=== PATIENT | male | born 1980 | race African-American/Black ===

== ENCOUNTER 2022-11-12 12:42 | Inpatient (IN) | payer MEDICAID ==
[2022-11-12] VITALS (30 sets, daily range): BP systolic 93–130; BP diastolic 60–87; PULSE 84–117; RESP 2–23; TEMP 98.2–98.6
[~2022-11-12] VITALS: Ht 170.2 cm; Wt 114.8 kg
[2022-11-12] MEDS ORDERED: SUCCINYLCHOLINE CHLORIDE 200MG/10ML IV ONE (13:00)
[2022-11-12] MEDS ORDERED: SODIUM CHLORIDE 0.9% 1,000 ML IV ONE (13:00)
[2022-11-12] MEDS ORDERED: ETOMIDATE 2MG/ML 10ML VIAL IV ONE (13:00)
[2022-11-12] MEDS ORDERED: FENTANYL CITRATE/PF 50MCG/ML 2ML VIAL IV ONE (13:00)
[2022-11-12] MEDS ORDERED: PROPOFOL 10MG/ML 100ML 100 ML IV ONE (13:00)
[2022-11-12] MEDS ORDERED: MIDAZOLAM HCL 100 MG in DEXT 5% WATER 80 ML IV ONE (13:00)
[2022-11-12 13:18] LABS: BASOPHILS % 0.7 % (0.0-2.0); EOSINOPHILS % 1.7 % (0.0-5.0); HEMATOCRIT. 48.8 % (42.0-52.0); HEMOGLOBIN. 16.8 g/dL (14.0-18.0); LYMPHOCYTES % 40.3 % (20.0-50.0); MEAN CORPUSCULAR HEMOGLOBIN 31.7 pg (28.0-32.0); MEAN CORPUSCULAR VOLUME 92.3 fL (80.0-94.0); MEAN PLATELET VOLUME 7.9 fl (7.4-10.4); MONOCYTES % 8.9 % (2.0-8.0); NEUTROPHILS % 48.4 % (40.0-76.0); PLATELET 262 x1000/uL (130-400); RED BLOOD CELL COUNT 5.29 mill/uL (4.7-6.1); RED CELL DISTRIBUTION WIDTH 12.4 % (11.6-14.6)
[2022-11-12 13:25] LABS: CHLORIDE 101 mEq/L (98-107)
[2022-11-12] MEDS ORDERED: MIDAZOLAM HCL 100 MG in SODIUM CHLORIDE 0.9% 80 ML IV ONE (13:30)
[2022-11-12 13:31] LABS: CLARITY URINE CLOUDY (CLEAR); COLOR URINE YELLOW (YELLOW); KETONES URINE NEGATIVE (NEGATIVE); LEUKOCYTE ESTERASE URINE NEGATIVE (NEGATIVE); NITRITE URINE NEGATIVE (NEGATIVE); OCCULT BLOOD URINE 2+ (NEGATIVE); PROTEIN URINE 4+ (NEGATIVE); SPECIFIC GRAVITY URINE 1.022 (1.005-1.030); UROBILINOGEN URINE 0.2 E.U./dL (0.2-1.0)
[2022-11-12 13:34] LABS: ETHANOL BLOOD < 10 mg/dL (-10)
[2022-11-12 13:56] LABS: *AMPHETAMINES SCREEN URINE PRESUMTIVE POSITIVE (NEGATIVE); *BARBITURATES SCREEN URINE NEGATIVE (NEGATIVE); *BENZODIAZEPINES SCREEN URINE NEGATIVE (NEGATIVE); *COCAINE SCREEN URINE NEGATIVE (NEGATIVE); CANNABINOID URINE SCREEN NEGATIVE (NEGATIVE); METHADONE URINE SCREEN NEGATIVE (NEGATIVE); OPIATES URINE SCREEN NEGATIVE (NEGATIVE); PHENCYCLIDINE URINE SCREEN NEGATIVE (NEGATIVE)
[2022-11-12 14:46] LABS: BG CARBOXYHEMOGLOBIN 0.5 % (0.5-1.5); BG DEOXYHEMOGLOBIN 1.2 % (0.0-5.0); BG FRACTION INSPIRED OXYGEN 100; BG METHEMOGLOBIN 0.4 % (0.0-1.5); BG OXYGEN SATURATION 98.8 % (92.0-98.5); BG OXYHEMOGLOBIN 97.9 % (94.0-97.0); BG PCO2 63.5 mmHg (35.0-45.0); BG PH 7.246 (7.350-7.450); BG PO2 194.6 mmHg (75.0-100.0); BG SAMPLE SITE RIGHT RADIAL; BG TOTAL HEMOGLOBIN 16.1 g/dL (12.0-18.0); BG VENT MODE VENT - AC
[2022-11-12] MEDS ORDERED: DEXTROSE 50% WATER 50ML SYRINGE IV PRN (15:00)
[2022-11-12] MEDS ORDERED: ACETAMINOPHEN 650MG SUPP PR PRN ×2 (15:00)
[2022-11-12] MEDS ORDERED: LORAZEPAM 2MG/ML CPJ IV PRN (15:00)
[2022-11-12 15:47] LABS: T4 FREE 0.95 ng/dL (0.76-1.46)
[2022-11-12 15:59] LABS: PHOSPHORUS 7.5 mg/dL (2.5-4.9)
[2022-11-12] MEDS ORDERED: PROPOFOL 10MG/ML 100ML 100 ML IV PRN (16:15)
[2022-11-12] MEDS ORDERED: MIDAZOLAM HCL 100 MG in SODIUM CHLORIDE 0.9% 80 ML IV PRN (16:15)
[2022-11-12] MEDS: BLOOD SUGAR DIAGNOSTIC STRIP TEST SCH ×2 (16:30→21:20)
[2022-11-12] MEDS: PROPOFOL 10MG/ML 100ML 100 ML IV PRN ×3 (16:32→22:05)
[2022-11-12] MEDS: INSULIN LISPRO 100 UNITS/ML SUBCUT SCH ×2 (17:00→21:00)
[2022-11-12] MEDS ORDERED: FOLIC ACID 1 MG, THIAMINE HCL 100 MG, MVI, ADULT NO.1 10 ML in DEXTROSE 5% WATER 1,000 ML IV ONE ×4 (17:30)
[2022-11-12] MEDS: AZITHROMYCIN 500 MG in DEXT 5% WATER 250 ML IV SCH (18:52)
[2022-11-12] MEDS: ENOXAPARIN 40MG/0.4ML SYR SUBCUT SCH (21:21)
[2022-11-12] MEDS ORDERED: IPRATROPIUM/ALBUTEROL 0.5-3(2.5)MG/3ML NEB HHN PRN (23:00)
[2022-11-13] VITALS (55 sets, daily range): BP systolic 102–150; BP diastolic 66–118; PULSE 84–107; RESP 15–23; TEMP 98.2–101.1
[2022-11-13] MEDS: DEXT 5%/0.9% NACL 1,000 ML IV SCH ×3 (02:32→22:23)
[2022-11-13] MEDS: PROPOFOL 10MG/ML 100ML 100 ML IV PRN ×7 (02:41→22:23)
[2022-11-13 05:24] LABS: CHLORIDE 106 mEq/L (98-107)
[2022-11-13 05:32] LABS: BASOPHILS % 0.3 % (0.0-2.0); EOSINOPHILS % 1.6 % (0.0-5.0); HEMATOCRIT. 42.1 % (42.0-52.0); HEMOGLOBIN. 14.5 g/dL (14.0-18.0); LYMPHOCYTES % 18.7 % (20.0-50.0); MEAN CORPUSCULAR HEMOGLOBIN 31.6 pg (28.0-32.0); MEAN CORPUSCULAR VOLUME 91.9 fL (80.0-94.0); MEAN PLATELET VOLUME 8.2 fl (7.4-10.4); MONOCYTES % 8.4 % (2.0-8.0); PLATELET 126 x1000/uL (130-400); RED BLOOD CELL COUNT 4.58 mill/uL (4.7-6.1); RED CELL DISTRIBUTION WIDTH 12.6 % (11.6-14.6)
[2022-11-13 05:35] LABS: CREATINE KINASE MB FRACTION 10.6 ng/mL (0.5-3.6); PHOSPHORUS 3.6 mg/dL (2.5-4.9)
[2022-11-13] MEDS: INSULIN LISPRO 100 UNITS/ML SUBCUT SCH ×4 (06:16→20:36)
[2022-11-13] MEDS: BLOOD SUGAR DIAGNOSTIC STRIP TEST SCH ×4 (06:16→20:36)
[2022-11-13] MEDS: ENOXAPARIN 40MG/0.4ML SYR SUBCUT SCH ×2 (08:50→20:35)
[2022-11-13] MEDS: IPRATROPIUM/ALBUTEROL 0.5-3(2.5)MG/3ML NEB HHN SCH ×3 (08:57→21:09)
[2022-11-13 09:03] LABS: BG CARBOXYHEMOGLOBIN 0.8 % (0.5-1.5); BG DEOXYHEMOGLOBIN 1.3 % (0.0-5.0); BG FRACTION INSPIRED OXYGEN 70; BG HCO3 ACT 23.9 mmol/L (22.0-26.0); BG METHEMOGLOBIN 0.2 % (0.0-1.5); BG OXYGEN SATURATION 98.7 % (92.0-98.5); BG OXYHEMOGLOBIN 97.7 % (94.0-97.0); BG PCO2 44.5 mmHg (35.0-45.0); BG PH 7.347 (7.350-7.450); BG PO2 145.2 mmHg (75.0-100.0); BG SAMPLE SITE RIGHT RADIAL; BG TOTAL HEMOGLOBIN 14.6 g/dL (12.0-18.0); BG VENT MODE VENT - AC
[2022-11-13] MEDS: AZITHROMYCIN 500 MG in DEXT 5% WATER 250 ML IV SCH (17:29)
[2022-11-14] VITALS (60 sets, daily range): BP systolic 112–157; BP diastolic 50–111; PULSE 73–101; RESP 13–30; TEMP 97.9–100.4
[2022-11-14] MEDS: PROPOFOL 10MG/ML 100ML 100 ML IV PRN ×7 (00:51→14:56)
[2022-11-14] MEDS: IPRATROPIUM/ALBUTEROL 0.5-3(2.5)MG/3ML NEB HHN SCH ×5 (00:57→23:58)
[2022-11-14 05:21] LABS: BASOPHILS % 0.6 % (0.0-2.0); EOSINOPHILS % 3.6 % (0.0-5.0); HEMATOCRIT. 39.8 % (42.0-52.0); HEMOGLOBIN. 13.7 g/dL (14.0-18.0); LYMPHOCYTES % 29.3 % (20.0-50.0); MEAN CORPUSCULAR HEMOGLOBIN 31.4 pg (28.0-32.0); MEAN CORPUSCULAR VOLUME 91.4 fL (80.0-94.0); MEAN PLATELET VOLUME 8.1 fl (7.4-10.4); MONOCYTES % 9.4 % (2.0-8.0); NEUTROPHILS % 57.1 % (40.0-76.0); PLATELET 152 x1000/uL (130-400); RED BLOOD CELL COUNT 4.36 mill/uL (4.7-6.1); RED CELL DISTRIBUTION WIDTH 12.6 % (11.6-14.6)
[2022-11-14] MEDS: BLOOD SUGAR DIAGNOSTIC STRIP TEST SCH ×4 (05:37→20:27)
[2022-11-14] MEDS: INSULIN LISPRO 100 UNITS/ML SUBCUT SCH ×4 (05:37→20:55)
[2022-11-14 05:53] LABS: CHLORIDE 109 mEq/L (98-107)
[2022-11-14 07:53] LABS: BG BASE EXCESS 0.7 mmol/L (-2.0-2.0); BG CARBOXYHEMOGLOBIN 0.6 % (0.5-1.5); BG FRACTION INSPIRED OXYGEN 45; BG HCO3 ACT 26.7 mmol/L (22.0-26.0); BG METHEMOGLOBIN 0.2 % (0.0-1.5); BG OXYHEMOGLOBIN 96.2 % (94.0-97.0); BG PCO2 48.2 mmHg (35.0-45.0); BG PH 7.362 (7.350-7.450); BG PO2 92.1 mmHg (75.0-100.0); BG SAMPLE SITE RIGHT RADIAL; BG TOTAL HEMOGLOBIN 14.3 g/dL (12.0-18.0); BG TOTAL RESPIRATORY RATE 22 b/min; BG VENT MODE VENT - AC
[2022-11-14] MEDS: PANTOPRAZOLE SODIUM 40 MG/VIAL IV SCH (08:03)
[2022-11-14] MEDS: DEXT 5%/0.9% NACL 1,000 ML IV SCH ×2 (08:03→17:32)
[2022-11-14] MEDS: ENOXAPARIN 40MG/0.4ML SYR SUBCUT SCH (08:04)
[2022-11-14] MEDS ORDERED: KCL 10MEQ/50ML PREMIX 50 ML IV NR (11:00)
[2022-11-14] MEDS: DEXMEDETOMIDINE 400 MCG/100 ML 100 ML IV PRN ×3 (13:42→20:55)
[2022-11-14] MEDS: CHLORDIAZEPOXIDE 5 MG CAPSULE PO SCH ×2 (14:00→20:57)
[2022-11-14] MEDS: AZITHROMYCIN 500 MG in DEXT 5% WATER 250 ML IV SCH (17:37)
[2022-11-14] MEDS: LORAZEPAM 2MG/ML CPJ IV PRN (18:13)
[2022-11-14] MEDS ORDERED: PROPOFOL 10MG/ML 100ML 100 ML IV PRN (19:45)
[2022-11-14] MEDS ORDERED: FENTANYL CITRATE/PF 2,500 MCG in SODIUM CHLORIDE 0.9% 200 ML IV PRN (20:15)
[2022-11-14] MEDS: MIDAZOLAM HCL 100 MG in SODIUM CHLORIDE 0.9% 80 ML IV PRN (20:55)
[2022-11-14] MEDS: ENOXAPARIN 30MG/0.3ML SYR SUBCUT SCH (20:57)
[2022-11-15] VITALS (54 sets, daily range): BP systolic 118–166; BP diastolic 58–124; PULSE 71–85; RESP 5–41; TEMP 98.6–99.8
[2022-11-15] MEDS: DEXMEDETOMIDINE 400 MCG/100 ML 100 ML IV PRN ×5 (00:17→17:01)
[2022-11-15] MEDS: DEXT 5%/0.9% NACL 1,000 ML IV SCH ×2 (04:30→15:11)
[2022-11-15 05:22] LABS: CHLORIDE 110 mEq/L (98-107)
[2022-11-15 05:25] LABS: BASOPHILS % 0.8 % (0.0-2.0); EOSINOPHILS % 3.1 % (0.0-5.0); HEMATOCRIT. 38.2 % (42.0-52.0); HEMOGLOBIN. 13.4 g/dL (14.0-18.0); LYMPHOCYTES % 21.2 % (20.0-50.0); MEAN CORPUSCULAR HEMOGLOBIN 32.2 pg (28.0-32.0); MEAN CORPUSCULAR VOLUME 91.4 fL (80.0-94.0); MEAN PLATELET VOLUME 8.2 fl (7.4-10.4); MONOCYTES % 10.8 % (2.0-8.0); NEUTROPHILS % 64.1 % (40.0-76.0); PLATELET 150 x1000/uL (130-400); RED BLOOD CELL COUNT 4.18 mill/uL (4.7-6.1); RED CELL DISTRIBUTION WIDTH 12.4 % (11.6-14.6)
[2022-11-15] MEDS: INSULIN LISPRO 100 UNITS/ML SUBCUT SCH ×4 (05:53→20:45)
[2022-11-15] MEDS: BLOOD SUGAR DIAGNOSTIC STRIP TEST SCH ×4 (05:53→20:45)
[2022-11-15] MEDS: CHLORDIAZEPOXIDE 5 MG CAPSULE PO SCH ×3 (06:00→22:00)
[2022-11-15] MEDS: MIDAZOLAM HCL 100 MG in SODIUM CHLORIDE 0.9% 80 ML IV PRN (06:51)
[2022-11-15 08:05] LABS: BG CARBOXYHEMOGLOBIN 0.2 % (0.5-1.5); BG FRACTION INSPIRED OXYGEN 50; BG HCO3 ACT 26.5 mmol/L (22.0-26.0); BG METHEMOGLOBIN 0.1 % (0.0-1.5); BG OXYHEMOGLOBIN 95.7 % (94.0-97.0); BG PCO2 40.8 mmHg (35.0-45.0); BG PO2 81.8 mmHg (75.0-100.0); BG SAMPLE SITE RIGHT RADIAL; BG TOTAL HEMOGLOBIN 13.8 g/dL (12.0-18.0); BG VENT MODE VENT - AC
[2022-11-15] MEDS: PANTOPRAZOLE SODIUM 40 MG/VIAL IV SCH (08:35)
[2022-11-15] MEDS: ENOXAPARIN 30MG/0.3ML SYR SUBCUT SCH ×2 (08:36→20:45)
[2022-11-15] MEDS: IPRATROPIUM/ALBUTEROL 0.5-3(2.5)MG/3ML NEB HHN SCH ×3 (08:47→16:00)
[2022-11-15] MEDS: LORAZEPAM 2MG/ML CPJ IV PRN ×2 (11:32→14:27)
[2022-11-15] MEDS ORDERED: RACEPINEPHRINE 2.25% 0.5ML NEB VIAL HHN PRN (12:30)
[2022-11-15] MEDS ORDERED: LIDOCAINE HCL 1% 10 MG/ML 10ML VIAL ONE (13:40)
[2022-11-15 14:23] LABS: BG BASE EXCESS 1.4 mmol/L (-2.0-2.0); BG CARBOXYHEMOGLOBIN 0.8 % (0.5-1.5); BG DEOXYHEMOGLOBIN 4.2 % (0.0-5.0); BG FRACTION INSPIRED OXYGEN 35; BG HCO3 ACT 26.6 mmol/L (22.0-26.0); BG METHEMOGLOBIN 0.2 % (0.0-1.5); BG OXYGEN SATURATION 95.8 % (92.0-98.5); BG OXYHEMOGLOBIN 94.8 % (94.0-97.0); BG PCO2 44.1 mmHg (35.0-45.0); BG PH 7.398 (7.350-7.450); BG PO2 81.9 mmHg (75.0-100.0); BG SAMPLE SITE RIGHT RADIAL; BG TOTAL HEMOGLOBIN 14.6 g/dL (12.0-18.0); BG VENT MODE COOL AEROSOL
[2022-11-15] MEDS: AZITHROMYCIN 500 MG in DEXT 5% WATER 250 ML IV SCH (17:00)
[2022-11-16] VITALS (35 sets, daily range): BP systolic 68–183; BP diastolic 41–121; PULSE 78–126; RESP 4–33; TEMP 97.8–99.7; O2SAT 95
[2022-11-16] MEDS: DEXT 5%/0.9% NACL 1,000 ML IV SCH ×2 (00:30→08:51)
[2022-11-16] MEDS: IPRATROPIUM/ALBUTEROL 0.5-3(2.5)MG/3ML NEB HHN SCH ×2 (00:53→19:44)
[2022-11-16 05:29] LABS: HEMATOCRIT 36.2 % (42.0-52.0); HEMOGLOBIN 12.5 g/dL (14.0-18.0); MEAN CORPUSCULAR HEMOGLOBIN 31.1 pg (28.0-32.0); MEAN CORPUSCULAR VOLUME 90.5 fL (80.0-94.0); PLATELET 177 x1000/uL (130-400); RED BLOOD CELL COUNT 4.01 mill/uL (4.7-6.1); RED CELL DISTRIBUTION WIDTH 12.7 % (11.6-14.6)
[2022-11-16 05:47] LABS: CHLORIDE 110 mEq/L (98-107)
[2022-11-16] MEDS: BLOOD SUGAR DIAGNOSTIC STRIP TEST SCH ×5 (06:00→21:27)
[2022-11-16] MEDS: INSULIN LISPRO 100 UNITS/ML SUBCUT SCH ×4 (06:00→21:00)
[2022-11-16] MEDS: CHLORDIAZEPOXIDE 5 MG CAPSULE PO SCH ×3 (06:04→21:27)
[2022-11-16 07:47] LABS: BG BASE EXCESS 0.6 mmol/L (-2.0-2.0); BG CARBOXYHEMOGLOBIN 0.9 % (0.5-1.5); BG DEOXYHEMOGLOBIN 10.4 % (0.0-5.0); BG HCO3 ACT 26.1 mmol/L (22.0-26.0); BG METHEMOGLOBIN 0.1 % (0.0-1.5); BG OXYGEN SATURATION 89.5 % (92.0-98.5); BG OXYHEMOGLOBIN 88.6 % (94.0-97.0); BG PCO2 45.2 mmHg (35.0-45.0); BG PH 7.379 (7.350-7.450); BG PO2 58.7 mmHg (75.0-100.0); BG SAMPLE SITE RIGHT RADIAL; BG TOTAL HEMOGLOBIN 12.7 g/dL (12.0-18.0); BG VENT MODE NASAL CANNULA
[2022-11-16] MEDS ORDERED: POTASSIUM CHLORIDE 20MEQ/PACKET PO SCH (08:15)
[2022-11-16] MEDS: ENOXAPARIN 30MG/0.3ML SYR SUBCUT SCH ×2 (08:50→21:28)
[2022-11-16] MEDS: PANTOPRAZOLE SODIUM 40 MG/VIAL IV SCH (08:50)
[2022-11-16] MEDS ORDERED: CLONIDINE 0.1MG TABLET PO NR (10:15)
[2022-11-16] MEDS ORDERED: AMLODIPINE 5MG TABLET PO SCH (10:15)
[2022-11-16] MEDS ORDERED: DIPHENHYDRAMINE 25MG CAPSULE PO PRN (10:15)
[2022-11-16 11:35] LABS: PHOSPHORUS 3.5 mg/dL (2.5-4.9)
[2022-11-16] MEDS: LORAZEPAM 2MG/ML CPJ IV PRN (12:49)
[2022-11-16] MEDS: FLUOXETINE HCL 10 MG CAPSULE PO SCH (12:49)
[2022-11-16] MEDS ORDERED: METHYLPREDNISOLONE SOD SUCC 40MG VIAL IV NR (13:15)
[2022-11-16] MEDS ORDERED: HYDRALAZINE 20MG/ML VIAL IV PRN ×2 (14:30→18:00)
[2022-11-16] MEDS ORDERED: AMLODIPINE 5MG TABLET PO NR (15:30)
[2022-11-16] MEDS: HYDRALAZINE HCL 50MG TABLET PO SCH ×2 (15:43→21:26)
[2022-11-16] MEDS: LOSARTAN POTASSIUM 50 MG TABLET PO SCH (15:43)
[2022-11-16] MEDS ORDERED: AMLODIPINE 10MG TABLET PO NR (15:45)
[2022-11-16] MEDS ORDERED: MAGNESIUM 2 G PREMIX 50 ML IV NR (17:30)
[2022-11-16] MEDS: AZITHROMYCIN 500 MG in DEXT 5% WATER 250 ML IV SCH (17:50)
[2022-11-17] VITALS (7 sets, daily range): BP systolic 123–147; BP diastolic 70–89; PULSE 97–117; RESP 16–28; TEMP 98.3–98.9; O2SAT 96–98
[2022-11-17] MEDS: IPRATROPIUM/ALBUTEROL 0.5-3(2.5)MG/3ML NEB HHN SCH ×2 (02:00→09:22)
[2022-11-17 06:18] LABS: CHLORIDE 105 mEq/L (98-107)
[2022-11-17 06:19] LABS: HEMATOCRIT 37.8 % (42.0-52.0); HEMOGLOBIN 13.1 g/dL (14.0-18.0); MEAN CORPUSCULAR HEMOGLOBIN 31.2 pg (28.0-32.0); MEAN CORPUSCULAR VOLUME 89.8 fL (80.0-94.0); PLATELET 234 x1000/uL (130-400); RED BLOOD CELL COUNT 4.21 mill/uL (4.7-6.1); RED CELL DISTRIBUTION WIDTH 12.4 % (11.6-14.6)
[2022-11-17] MEDS: CHLORDIAZEPOXIDE 5 MG CAPSULE PO SCH (06:55)
[2022-11-17] MEDS: BLOOD SUGAR DIAGNOSTIC STRIP TEST SCH ×2 (06:58→11:50)
[2022-11-17] MEDS: INSULIN LISPRO 100 UNITS/ML SUBCUT SCH ×2 (06:58→12:13)
[2022-11-17] MEDS: HYDRALAZINE HCL 50MG TABLET PO SCH (06:58)
[2022-11-17] MEDS ORDERED: POTASSIUM CHLORIDE 20MEQ TABLET SR PO NR (08:15)
[2022-11-17 08:54] LABS: BG BASE EXCESS 4.6 mmol/L (-2.0-2.0); BG CARBOXYHEMOGLOBIN 0.2 % (0.5-1.5); BG FRACTION INSPIRED OXYGEN 36; BG HCO3 ACT 29.4 mmol/L (22.0-26.0); BG METHEMOGLOBIN 0.3 % (0.0-1.5); BG OXYHEMOGLOBIN 96.5 % (94.0-97.0); BG PCO2 44.3 mmHg (35.0-45.0); BG PO2 93.9 mmHg (75.0-100.0); BG SAMPLE SITE LEFT RADIAL; BG TOTAL HEMOGLOBIN 14.7 g/dL (12.0-18.0); BG VENT MODE NASAL CANNULA
[2022-11-17 09:12] LABS: PHOSPHORUS 5.3 mg/dL (2.5-4.9)
[2022-11-17] MEDS: AMLODIPINE 10MG TABLET PO SCH ×2 (10:03→10:12)
[2022-11-17] MEDS: FLUOXETINE HCL 10 MG CAPSULE PO SCH ×2 (10:04→10:13)
[2022-11-17] MEDS: LOSARTAN POTASSIUM 50 MG TABLET PO SCH (10:12)
[2022-11-17] MEDS: ENOXAPARIN 30MG/0.3ML SYR SUBCUT SCH (10:13)
[2022-11-17] MEDS ORDERED: AMLO10TA80 PO (11:11)
[2022-11-17] MEDS ORDERED: LOSA50TA41 PO (11:11)
[2022-11-18] MEDS ORDERED: FAMOTIDINE 20MG/2ML VIAL IV SCH (09:00)
== END 2022-11-17 14:05 | disposition home or self-care (01) | DRG 812 ==
LOC: ER 13:45 → EDBD 16:08 → MICUNO 16:08 → 3WST 11-16 16:40
PROVIDERS: ADMIT Internal Medicine; ATTEND Internal Medicine
PROC: 5A1945Z Respiratory Ventilation, 24-96 Consecutive Hours (ICD-10-PCS; principal; 2022-11-12)
PROC: 0BH17EZ Insertion of Endotracheal Airway into Trachea, Via Natural or Artificial Opening (ICD-10-PCS; 2022-11-12)
PROC: B54BZZA Ultrasonography of Right Lower Extremity Veins, Guidance (ICD-10-PCS; 2022-11-12)
PROC: 06HY33Z Insertion of Infusion Device into Lower Vein, Percutaneous Approach (ICD-10-PCS; 2022-11-12)
PROC: 02HV33Z Insertion of Infusion Device into Superior Vena Cava, Percutaneous Approach (ICD-10-PCS; 2022-11-15)
PROC: B548ZZA Ultrasonography of Superior Vena Cava, Guidance (ICD-10-PCS; 2022-11-15)
DX: T50.7X1A Poisoning by analeptics and opioid receptor antagonists, accidental (unintentional), initial encounter (principal); N17.0 Acute kidney failure with tubular necrosis; A41.9 Sepsis, unspecified organism; G92.8 Other toxic encephalopathy; E43 Unspecified severe protein-calorie malnutrition; J96.01 Acute respiratory failure with hypoxia; I21.A1 Myocardial infarction type 2; J96.02 Acute respiratory failure with hypercapnia; J18.9 Pneumonia, unspecified organism; E87.1 Hypo-osmolality and hyponatremia; E11.65 Type 2 diabetes mellitus with hyperglycemia; R74.01 Elevation of levels of liver transaminase levels; R80.9 Proteinuria, unspecified; I16.0 Hypertensive urgency; E87.6 Hypokalemia; F15.10 Other stimulant abuse, uncomplicated; I11.9 Hypertensive heart disease without heart failure; R31.29 Other microscopic hematuria; Z78.1 Physical restraint status; Y92.89 Other specified places as the place of occurrence of the external cause; Z68.39 Body mass index [BMI] 39.0-39.9, adult
CPT/HCPCS: 31500; 36415; 36573; 36600; 71045; 74018; 76770; 80048; 80053; 80076; 80305; 80320; 81003; 82375; 82553; 82805; 82962; 83036; 83735; 83880; 84100; 84145; 84439; 84443; 84478; 84484; 85025; 85027; 85379; 87070; 92610; 93005; 93306; 93970; 94003; 94640; 97161; 99285; C1725; C9113; J0360; J0456; J1650; J1815; J2060; J2250; J2704; J2920; J3411; J3475; J3480; J3490; J7030; J7042; J7050; J7060; J7070; Q9957; A5200; G0480